=== PATIENT | female | born 1945 | race Caucasian/White ===

== ENCOUNTER 2016-11-15 12:41 | Emergency (ER) | payer BC ==
[2016-11-15] MEDS ORDERED: Levalbuterol 0.63MG/3ML NEB INH ONE (13:02)
[2016-11-15] MEDS ORDERED: predniSONE TAB* 20 MG PO ONE ×2 (13:02→17:13)
--- NOTE | 2016-11-15 13:08 | UC ---
Respiratory Complaint HPI - HPI Summary HPI Summary: Patient has a hx COPD, has increased SALAZAR, sinus pressure, wheezing and SOB. - History of Current Complaint Stated Complaint: COUGH/SALAZAR/RUNNY NOSE Time Seen by Provider: 11/15/16 12:54 Hx Obtained From: Patient ?: No Onset/Duration: Sudden Onset Timing: Constant Severity Initially: Moderate Severity Currently: Severe Character: Cough: Productive Aggravating Factors: Exertion, Deep Breaths, Recumbent Position Alleviating Factors: Nothing Associated Signs And Symptoms: Positive: Dyspnea, Wheezing, Dizziness - with exertion of coughing fits, URI, Nasal Congestion, Sinus Discomfort - Allergies/Home Medications Allergies/Adverse Reactions: Allergies Allergy/AdvReac Type Severity Reaction Status Date / Time Amoxicillin [From Augmentin] Allergy Rash Verified 11/15/16 13:18 Clavulanic Acid Allergy Rash Verified 11/15/16 13:18 [From Augmentin] Erythromycin Allergy Rash Verified 11/15/16 13:18 Home Medications: Home Medications Lisinopril/HCTZ 20/25(NF) [Zestoretic 20/25(NF)] 1 tab PO DAILY 11/15/16 [ History Confirmed 11/15/16] Tiotropium CAP.INH* [Spiriva CAP.INH*] 1 cap.inh INH DAILY 11/15/16 [History Confirmed 11/15/16] PMH/Surg Hx/FS Hx/Imm Hx Previously Healthy: Yes Respiratory History Of: Reports: COPD, Bronchitis Cancer History Of: Denies: Breast Cancer - Family History Known Family History: Positive: Hypertension, Respiratory Disease Review of Systems Constitutional: Fatigue Skin: Negative Eyes: Negative ENT: Sore Throat, Ear Ache, Nasal Discharge Respiratory: Shortness Of Breath, Cough Cardiovascular: Negative Gastrointestinal: Negative Genitourinary: Negative Motor: Negative Neurovascular: Negative Musculoskeletal: Negative Neurological: Headache Psychological: Negative All Other Systems Reviewed And Are Negative: Yes Physical Exam Triage Information Reviewed: Yes Appearance: Well-Nourished, Ill-Appearing, Pain Distress Vital Signs Reviewed: Yes Eye Exam: Normal Eyes: Positive: Conjunctiva Clear ENT Exam: Normal ENT: Positive: Pharyngeal erythema, Nasal congestion, Nasal drainage, Muffled/ hoarse voice Dental Exam: Normal Neck exam: Normal Neck: Positive: Supple, Nontender, No Lymphadenopathy Respiratory: Positive: Chest non-tender, No accessory muscle use, Respiratory distress - moderate, Rhonchi, Stridor, Wheezing, Inspiration Cardiovascular Exam: Normal Abdominal Exam: Normal Abdomen Description: Positive: Nontender, No Organomegaly, Soft Bowel Sounds: Positive: Present Musculoskeletal Exam: Normal Musculoskeletal: Positive: Strength Intact, ROM Intact, No Edema Neurological Exam: Normal Neurological: Positive: Alert, Muscle Tone Normal Psychological Exam: Normal Skin Exam: Normal Respiratory Course/Dx - Course Course Of Treatment: hx obtained, exam performed, meds reviewed, neb treatment given, prednisone given. responded well to treated, meds prescribed and script of neb machine given. - Differential Dx/Diagnosis Differential Diagnosis/HQI/PQRI: Asthma, Bronchitis, Exacerbation Of COPD, Sinusitis Provider Diagnoses: COPD exacerbation. Sinusitis. SOB Discharge - Discharge Plan Condition: Stable Disposition: HOME Prescriptions: Albuterol 2.5MG/3ML (0.083%)* [Ventolin 2.5 MG/3 ML NEB.GABRIELA*] 2.5 mg INH Q4H #1 box DOXYcycline CAP(*) [DOXYcycline 100MG CAP(*)] 100 mg PO BID #14 cap predniSONE TAB* [Deltasone TAB*] 40 mg PO DAILY #14 tab Patient Education Materials: Chronic Lung Disease and Infection Prevention (ED) Additional Instructions: Take the medication as prescribed. Get the nebulizer machine and use it every 8 hours as needed for SOB or cough.
[2016-11-15 13:57] VITALS: BP 195/84
== END 2016-11-15 14:00 | disposition home or self-care (01) ==
LOC: UCCORT 12:41
DX: J44.1 Chronic obstructive pulmonary disease with (acute) exacerbation (principal); J32.9 Chronic sinusitis, unspecified; R06.02 Shortness of breath; Z88.1 Allergy status to other antibiotic agents
CPT/HCPCS: 99212; A9270-GY; G0463; J7512

== ENCOUNTER 2017-09-12 13:30 | Emergency (ER) | payer BC ==
[2017-09-12 13:48] VITALS: BP 103/77
--- NOTE | 2017-09-12 14:51 | UC ---
Respiratory Complaint HPI - HPI Summary HPI Summary: 72 yo female with cough x 3 weeks just finished doxy and prednisone now with 2 day hx of left lat rib pain hurts to take a deep breath/bending/laying on left side no f/c - History of Current Complaint Chief Complaint: UCRespiratory Stated Complaint: SOB, COUGH, PAIN IN LEFT SIDE (RIBS) Time Seen by Provider: 09/12/17 14:41 Hx Obtained From: Patient Onset/Duration: Gradual Onset, Lasting Weeks Timing: Constant Severity Initially: Mild Severity Currently: Moderate Pain Intensity: 7 Pain Scale Used: 0-10 Numeric Character: Cough: Nonproductive Aggravating Factors: Deep Breaths, Other - movement/laying of left side Alleviating Factors: Nothing Associated Signs And Symptoms: Positive: Pleuritic Chest Pain - Allergies/Home Medications Allergies/Adverse Reactions: Allergies Allergy/AdvReac Type Severity Reaction Status Date / Time amoxicillin [From Augmentin] Allergy Rash Verified 09/12/17 13:38 clavulanic acid Allergy Rash Verified 09/12/17 13:38 [From Augmentin] erythromycin base Allergy Rash Verified 09/12/17 13:38 Home Medications: Home Medications Albuterol 2.5MG/3ML (0.083%)* [Ventolin 2.5 MG/3 ML NEB.GABRIELA*] 2.5 mg INH Q4H PRN 09/12/17 [History Confirmed 09/12/17] Albuterol 2.5MG/3ML (0.083%)* [Ventolin 2.5 MG/3 ML NEB.GABRIELA*] 2.5 mg INH Q6H PRN 09/12/17 [History Confirmed 09/12/17] Albuterol HFA INHALER* [Ventolin HFA Inhaler*] 1 - 2 puff INH Q4H PRN 09/12/17 [ History Confirmed 09/12/17] Budesonide/Formote 80/4.5(NF) [Symbicort 80/4.5 (NF)] 1 puff INH BID 09/12/17 [ History Confirmed 09/12/17] Roflumilast (NF) [Daliresp (NF)] 500 mcg PO DAILY 09/12/17 [History Confirmed ] Simvastatin TAB(NF) [Zocor(NF)] 20 mg PO DAILY 09/12/17 [History Confirmed 09/12] PMH/Surg Hx/FS Hx/Imm Hx Previously Healthy: Yes Endocrine History: Dyslipidemia Cardiovascular History: Hypertension Respiratory History: COPD - Surgical History Surgical History: Yes Surgery Procedure, Year, and Place: hernia repair. breast biopsy. ovary removed - Family History Known Family History: Positive: Hypertension, Respiratory Disease - Social History Alcohol Use: None Substance Use Type: None Smoking Status (MU): Heavy Every Day Tobacco Smoker Type: Cigarettes Amount Used/How Often: 20 cigs per day Review of Systems Constitutional: Negative Skin: Negative Eyes: Negative ENT: Negative Respiratory: Cough Cardiovascular: Chest Pain Gastrointestinal: Negative Genitourinary: Negative Motor: Negative Neurovascular: Negative Musculoskeletal: Negative Neurological: Negative Psychological: Negative Is Patient Immunocompromised?: No All Other Systems Reviewed And Are Negative: Yes Physical Exam Triage Information Reviewed: Yes Appearance: Well-Appearing, No Pain Distress, Well-Nourished Vital Signs: Initial Vital Signs Temp 99 F 09/12/17 13:43 Pulse 89 09/12/17 13:43 Resp 20 09/12/17 13:43 BP 103/77 09/12/17 13:43 Pulse Ox 97 09/12/17 13:43 Vital Signs Reviewed: Yes ENT: Negative: Nasal congestion, Nasal drainage, Muffled voice, Hoarse voice Neck: Positive: Supple, Nontender, No Lymphadenopathy Respiratory: Positive: Lungs clear, No respiratory distress, No accessory muscle use, Crackles - left base. Negative: Chest non-tender Cardiovascular: Positive: RRR, No Murmur Musculoskeletal: Positive: ROM Intact, No Edema Neurological: Positive: Alert Psychological Exam: Normal Skin Exam: Normal UC Diagnostic Evaluation - Laboratory O2 Sat by Pulse Oximetry: 97 - normal/not hypoxic - Radiology Xray Interpretation: No Acute Changes Radiology Interpretation Completed By: Radiologist Respiratory Course/Dx - Differential Dx/Diagnosis Provider Diagnoses: acute left chest wall pain Discharge - Discharge Plan Condition: Stable Disposition: HOME Prescriptions: predniSONE [Deltasone] 40 mg PO DAILY #10 tab traMADol TAB* [Ultram*] 25 mg PO Q6HR PRN #20 tab MDD 4 PRN Reason: Pain Patient Education Materials: Chest Wall Pain (ED) Referrals: Shmuel Garcia MD [Primary Care Provider] - 2 Days (recheck in 2-5 days ) Images Front/Back of Body, Lg ([place]): 1 - point tenderness
--- NOTE | 2017-09-12 15:16 | RAD ---
Indication: Cough, left rib pain. 3 views of left ribs and dual energy PA views of the chest demonstrates no mediastinal shift. Heart is of normal size and configuration. No pneumothorax is noted. No definite rib fracture is identified. Diffuse osteopenia is noted. IMPRESSION: No definite rib fractures noted. No pneumothorax is noted. Diffuse osteopenia and body habitus limits evaluation.
== END 2017-09-12 15:56 | disposition home or self-care (01) ==
LOC: UCCORT 13:30
DX: R07.89 Other chest pain (principal); J44.9 Chronic obstructive pulmonary disease, unspecified; E78.5 Hyperlipidemia, unspecified; F17.210 Nicotine dependence, cigarettes, uncomplicated
CPT/HCPCS: 99212; G0463

== ENCOUNTER 2018-08-03 15:09 | Emergency (ER) | payer BC ==
--- OUTSIDE RECORDS SUMMARY | 2018-08-03 15:34 | XMS REPORT | Continuity of Care Document ---
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 Active Onset: 09/28/2012 Head and neck swelling Madhu Vazquez M.D. Active Onset: 09/28/2012 Deviated nasal septum Madhu Vazquez M.D. Active Onset: 09/28/2012 Disorder of vocal cord Madhu Vazquez M.D. Active Onset: 09/28/2012 Tobacco user Madhu Vazquez M.D. Active Family History Date Family Member(s) Problem(s) Comments General Hearing Loss General Asthma And Allergies General Diabetes Social History Type Date Description Comments Sex Unknown Marital Status Occupation Homemaker Tobacco Use Start: Unknown Current Cigarette Smoker 1 Pack Daily ETOH Use Rarely consumes alcohol Recreational Drug Use Never Used Drugs Tobacco Use Start: Unknown Patient is a current smoker, smokes every day Allergies, Adverse Reactions, Alerts Date Description Reaction Status Severity Comments 11/14/2013 Augmentin Active 11/14/2013 Erythromycin Active 09/28/2012 NKDA Inactive Medications Medication Date Status Form Strength Qnty SIG Indications Ordering Provider Cymbalta Active Caps DR 60mg Unknown 000 Part Cymbalta Active Caps DR 30mg Unknown 000 Part Bystolic Active Tablets 5mg Unknown 000 Zinc Active Capsules 50mg Unknown 000 Aspirin Low Dose 00/00/0 Active Tablets 81mg Unknown 000 Calcium Active Tablets 600mg Unknown 000 Acetaminophen Active Capsules 500mg 60caps 1 po q4 Unknown 000 h as needed pain Zocor Active Tablets 10mg Unknown 000 Daliresp Active Tablets 500mcg 1 by Unknown 000 mouth every day Respinol Active Liquid Unknown [address] 30mg Unknown 000 - Part 013 Gertrude Hx Tablets 10-40mg Unknown 000 - 014 Vytorin Hx Tablets 10-20mg Unknown 000 - 014 Immunizations Description No Information Available Vital Signs Date Vital Result Comment 07/31/2018 10:58am Weight 144.00 lb Height 58.5 inches 4'10.50" BMI (Body Mass Index) 29.6 kg/m2 BP Systolic 126 mmHg BP Diastolic 87 mmHg Heart Rate 84 /min O2 % BldC Oximetry 93 % Body Temperature 97.5 F Pain Level 0 07/24/2017 11:13am Weight 160.00 lb Height 58.5 inches 4'10.50" BMI (Body Mass Index) 32.9 kg/m2 BP Systolic 127 mmHg BP Diastolic 80 mmHg Heart Rate 80 /min O2 % BldC Oximetry 94 % Body Temperature 96.4 F Pain Level 0 06/08/2016 11:14am Weight 171.00 lb Height 58.5 inches 4'10.50" BMI (Body Mass Index) 35.1 kg/m2 BP Systolic 152 mmHg BP Diastolic 96 mmHg Heart Rate 71 /min O2 % BldC Oximetry 97 % Body Temperature 98.2 F Pain Level 0 11/18/2014 10:17am Weight 169.00 lb Height 58.5 inches 4'10.50" BMI (Body Mass Index) 34.7 kg/m2 BP Systolic 130 mmHg BP Diastolic 68 mmHg Heart Rate 68 /min O2 % BldC Oximetry 95 % Body Temperature 97.9 F 11/14/2013 10:32am Weight 166.00 lb Height 58.5 inches 4'10.50" BMI (Body Mass Index) 34.1 kg/m2 BP Systolic 148 mmHg BP Diastolic 98 mmHg Heart Rate 84 /min Body Temperature 97.0 F 09/28/2012 12:00pm Weight 165.00 lb Height 58.5 inches 4'10.50" BMI (Body Mass Index) 33.9 kg/m2 BP Systolic 150 mmHg BP Diastolic 90 mmHg Heart Rate 75 /min O2 % BldC Oximetry 96 % Body Temperature 97.7 F Results Test Date Facility Test Result H/L Range Note Laboratory test 11/13/2015 [facility] Fna Thyroid See Note 1 finding [address] [place] [id number] [phone] Fna With Cell 10/03/2012 [facility] Nature of Right Thyroid Block And DQ (513)- - Specimen Stain Text Diagnosis FNA: NO MALIGN <SEE NOTE> 2 Gross Pathology Received air dri <SEE NOTE> 3 Micro Pathology Two out of the t <SEE NOTE> 4 Cytology Report SEE IMAGE Clinical History Right thyroid no <SEE NOTE> 5 Comments Follow-up as cli <SEE NOTE> 6 1 NON-MEDICAL CODING AUDITOR PREPARATION TECHNIQUES CYTOLOGY NON-MEDICAL CODING AUDITOR SPECIMEN PREPARATION: 1 THINPREP SLIDE PREPARATIONS 1 SLIDE PREPARATIONS SMEARS RECEIVED IN LAB ALREADY PREPARED: 4 PREPARED SMEARS A TOTAL OF 1 SLIDE PREPARATIONS WERE MADE ON THIS SPECIMEN. FINAL INTERPRETATION "THYROID, RIGHT LOBE, FINE NEEDLE ASPIRATION": - NON-DIAGNOSTIC SPECIMEN. EP/clf 1435 GROSS REC'D 4 PREPARED SLIDES AND 1 TP VIAL. BEN Signed Electronically signed Geovanna SHEARER MD [id number] 2 FNA: NO MALIGNANT CELLS IDENTIFIED. ADENOMATOUS NODULE/GOITER WITH CYSTIC CHANGES (BETHESDA CATEGORY II). 3 Received air dried are three direct smears labeled with the patient's full name, Rt Thyroid and specimen jar labeled with the patient's full name and Rt Thyroid identical to that printed on the test requisition. Also received is a specimen tube containing 12 cc of clear fluid fixed in ethanol labeled with the patient's full name and Rt Thyroid identical to that printed on the test requisition s ubmitted for histopathology sections, designated 1A . garrett 4 Two out of the three Diff Quik stained direct smears are moderately cellular and show clusters of follicular cells and many hemosiderin macrophages in a hemorrhagic background. Thin colloid is present. No nuclear atypia is seen. The remaining smear and cell block sections are non-contributory. 5 Right thyroid nodule 6 Follow-up as clinically indicated. Procedures Date Code Description Status 07/24/2017 39877 Ultrasound Head/Neck Completed 06/08/2016 15021 Ultrasound Head/Neck Completed 11/13/2015 93770 Ultrasonic Guide Needle Biopsy Completed 11/13/2015 62161 Fna W/Image Completed 11/18/2014 49599 Ultrasound Head/Neck Completed 11/14/2013 32949 Ultrasound Head/Neck Completed 10/05/2012 50091 Ultrasonic Guide Needle Biopsy Completed 10/05/2012 52954 Fna W/Image Completed 09/28/2012 59525 Ultrasound Head/Neck Completed 09/28/2012 54079 Laryngoscopy W/ Stroboscopy Completed Encounters Type Date Location Provider Dx Diagnosis Office Visit 07/24/2017 Main Office Madhu Vazquez M.D. 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 goiter R06.02 Shortness of breath E07.9 Disorder of thyroid, unspecified Office Visit 11/18/2014 10:15a Main Office Madhu Vazquez, 246.9 Thyroid Disorders M.D. Unspec 784.2 Mass/Swelling, Neck Or Head 241.1 Goiter Nontoxic Multinodular Office Visit 11/14/2013 10:30a Main Office Madhu Vazquez, 784.2 Mass/ Swelling, Neck Or M.D. 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
[2018-08-03 15:41] VITALS: BP 119/78
[2018-08-03] MEDS ORDERED: Levalbuterol 0.63MG/3ML NEB* UNIT OF USE INH ONE (15:50)
[2018-08-03 16:09] LABS: Influenza A Molecular POSITIVE (Negative)
[2018-08-03] MEDS ORDERED: methylPREDNISolone 125 MG* 2 ML VIAL IV ONE (16:17)
--- NOTE | 2018-08-03 16:29 | UC ---
Respiratory Complaint HPI - HPI Summary HPI Summary: patient has hx of COPD she is experiencing fever, increased cough and SOB. body aches. She is overall not feeling well. Did use her albuterol but made her chest feel worse. SHe denies any history of CHF. has not been feeling good for the past 2 days. denies any CP, does have hx of HTN. - History of Current Complaint Chief Complaint: UCRespiratory Stated Complaint: BODY ACHES, COUGH Time Seen by Provider: 08/03/18 15:43 Hx Obtained From: Patient Onset/Duration: Sudden Onset, Lasting Days - 2 Timing: Constant Severity Initially: Mild Severity Currently: Moderate Pain Intensity: 6 Character: Cough: Productive Aggravating Factors: Exertion, Deep Breaths, Recumbent Position Alleviating Factors: Nothing Associated Signs And Symptoms: Positive: Dyspnea, Fever, Chills, Wheezing, Nasal Congestion, Sinus Discomfort - Risk Factors Cardiac Risk Factors: Hypertension, Elevated Lipids Pseudomonas Risk Factors: Chronic Lung Disease - Allergies/Home Medications Allergies/Adverse Reactions: Allergies Allergy/AdvReac Type Severity Reaction Status Date / Time amoxicillin [From Augmentin] Allergy Rash Verified 08/03/18 15:41 clavulanic acid Allergy Rash Verified 08/03/18 15:41 [From Augmentin] erythromycin base Allergy Rash Verified 08/03/18 15:41 PMH/Surg Hx/FS Hx/Imm Hx Previously Healthy: Yes - Surgical History Surgical History: Yes Surgery Procedure, Year, and Place: hernia repair. breast biopsy. ovary removed - Family History Known Family History: Positive: Hypertension, Respiratory Disease - Social History Alcohol Use: None Substance Use Type: None Smoking Status (MU): Heavy Every Day Tobacco Smoker Type: Cigarettes Amount Used/How Often: 20 cigs per day Review of Systems All Other Systems Reviewed And Are Negative: Yes Constitutional: Positive: Fever, Fatigue Skin: Positive: Negative Eyes: Positive: Negative ENT: Positive: Nasal Discharge Respiratory: Positive: Shortness Of Breath, Cough Cardiovascular: Positive: Negative Gastrointestinal: Positive: Negative Genitourinary: Positive: Negative Motor: Positive: Negative Musculoskeletal: Positive: Arthralgia, Myalgia Neurological: Positive: Headache Psychological: Positive: Negative Is Patient Immunocompromised?: No Physical Exam Triage Information Reviewed: Yes Appearance: Ill-Appearing, Pain Distress, Obese Vital Signs: Initial Vital Signs Temp 98.6 F 08/03/18 15:38 Pulse 98 08/03/18 15:38 Resp 32 08/03/18 15:38 BP 119/78 08/03/18 15:38 Pulse Ox 98 08/03/18 15:38 Vital Signs Reviewed: Yes Eye Exam: Normal ENT: Positive: Pharyngeal erythema, TMs normal Dental Exam: Normal Neck: Positive: Supple, Nontender, Enlarged Nodes @ - cervical, bilateral Respiratory: Positive: Decreased breath sounds - throughout, Wheezing, Inspiration Cardiovascular: Positive: No Murmur, Pulses Normal Abdominal Exam: Normal Musculoskeletal Exam: Normal Musculoskeletal: Positive: Strength Intact, ROM Intact, No Edema, Other: - initially in tripod position, relaxed into more comfortable position after treatment Neurological Exam: Normal Neurological: Positive: Alert, Muscle Tone Normal Psychological Exam: Normal Skin Exam: Normal UC Diagnostic Evaluation - Laboratory O2 Sat by Pulse Oximetry: 98 Re-Evaluation - Re-Evaluation First Eval Re-Evaluation Time: 16:15 Change: Improved - slight improvement of air movment. Cough is easier. o2 sat 92 % Second Eval Re-Evaluation Time: 17:42 Change: Improved - breathing is easier since solumedrol Respiratory Course/Dx - Course Course Of Treatment: hx obtained, exam performed ,meds reviewed, patient tested positive for influenza A. xopenex given. solumedrol given. chest xray obtained. patient improved after solumedrol. treated for influenza, pneumonia COPD exacerbation, and advised to go to the ER with any increased respiratory difficulty. - Differential Dx/Diagnosis Differential Diagnosis/HQI/PQRI: Asthma, Bronchitis, Exacerbation Of COPD, Influenza, Laryngitis, Lower Resp Infection, Sinusitis Provider Diagnosis: Influenza A, COPD (chronic obstructive pulmonary disease) Discharge - Sign-Out/Discharge Documenting (check all that apply): Patient Departure All imaging exams completed and their final reports reviewed: No - Discharge Plan Condition: Stable Disposition: HOME Prescriptions: DOXYcycline CAP(*) [DOXYcycline 100MG CAP(*)] 100 mg PO BID #14 cap Oseltamivir CAP* [Tamiflu CAP*] 75 mg PO BID #10 cap predniSONE [Prednisone 20 MG TAB] 20 mg PO DAILY #5 tablet Patient Education Materials: Influenza (ED), Bacterial Pneumonia (ED) Referrals: Shmuel Garcia MD [Primary Care Provider] - Additional Instructions: 1. take the tamilflu, prednisone and doxycycline as prescribed. 2. COntinue with your albuterol 3 times a day 3. FOllow up with Dr Vail this week. 4. If you develop any increased SOB, cough or respiratory difficulty report directly to ER. - Billing Disposition and Condition Condition: STABLE Disposition: Home - Attestation Statements Provider Attestation: I was available for consult. This patient was seen by the STE[facility]. The patient was not presented to, seen by, or examined by me. EK
--- NOTE | 2018-08-04 10:26 | UC ---
- Progress Note Progress Note: Radiologist reading of chest x-ray from August 03, 2018 comes back as by basilar segmental atelectasis but aspiration cannot be excluded. The provider from the same date is treating for bacterial pneumonia therefore there is no discrepancy Re-Evaluation - Re-Evaluation First Eval Re-Evaluation Time: 16:15 Change: Improved - slight improvement of air movment. Cough is easier. o2 sat 92 % Second Eval Re-Evaluation Time: 17:42 Change: Improved - breathing is easier since solumedrol Course/Dx - Diagnoses Provider Diagnoses: Influenza A, COPD (chronic obstructive pulmonary disease) Discharge - Sign-Out/Discharge Documenting (check all that apply): Patient Departure All imaging exams completed and their final reports reviewed: Yes - Discharge Plan Condition: Stable Disposition: HOME Prescriptions: DOXYcycline CAP(*) [DOXYcycline 100MG CAP(*)] 100 mg PO BID #14 cap Oseltamivir CAP* [Tamiflu CAP*] 75 mg PO BID #10 cap predniSONE [Prednisone 20 MG TAB] 20 mg PO DAILY #5 tablet Patient Education Materials: Influenza (ED), Bacterial Pneumonia (ED) Referrals: Shmuel Garcia MD [Primary Care Provider] - Additional Instructions: 1. take the tamilflu, prednisone and doxycycline as prescribed. 2. COntinue with your albuterol 3 times a day 3. FOllow up with Dr Vail this week. 4. If you develop any increased SOB, cough or respiratory difficulty report directly to ER. - Billing Disposition and Condition Condition: STABLE Disposition: Home
== END 2018-08-03 17:54 | disposition home or self-care (01) ==
LOC: UCCORT 15:09
DX: J44.9 Chronic obstructive pulmonary disease, unspecified (principal); J09.X2 Influenza due to identified novel influenza A virus with other respiratory manifestations; I10 Essential (primary) hypertension; Z88.0 Allergy status to penicillin; Z88.1 Allergy status to other antibiotic agents; F17.210 Nicotine dependence, cigarettes, uncomplicated
CPT/HCPCS: 71046; 96372; 99212; G0463; J2930